=== PATIENT | female | born 1985 | race American Indian/Alaskan Native ===

== ENCOUNTER 2021-05-03 15:27 | Emergency (ER) | payer MEDICAID ==
[2021-05-03 16:10] VITALS: BP 99/65
--- NOTE | 2021-05-03 17:00 | Emergency Department Report ---
ED Female HPI - General Chief complaint: Urogenital-Female Stated complaint: STI EXPOSURE Time Seen by Provider: 05/03/21 16:55 Source: patient Mode of arrival: Ambulatory Limitations: No Limitations - History of Present Illness Initial comments: 35-year-old -[place] female reports to the emergency room stating that her partner told her she needed to get checked for STI. Patient also reports dysuria urinary urgency and frequency for the last 3 days. She does report some vaginal discharge and thought it was may be a yeast infection. Patient is 1 para 1. Patient reports her last menstrual period was 04/17/2021. She currently has no past medical history takes no medications on a daily basis and has no known drug allergies. MD Complaint: possible STD Onset/Timin -: days(s) Severity: mild Severity scale (0 -10): 0 Worsens with: urination Are you Now?: No Associated Symptoms: vaginal discharge, dysuria. denies: vaginal bleeding, abdominal pain, nausea/vomiting, fever/chills, hematuria, rash, shortness of breath, weakness - Related Data Previous Rx's Medication Instructions Recorded Last Taken Type Doxycycline Hyclate [Doxycycline 100 mg PO Q12HR 10 Days #20 tab 05/03/21 Unknown Rx Hyclate TAB] metroNIDAZOLE [Flagyl] 500 mg PO Q12HR 7 Days #14 tab 05/03/21 Unknown Rx Allergies Allergy/AdvReac Type Severity Reaction Status Date / Time No Known Allergies Allergy Unverified 05/03/21 16:05 ED Review of Systems ROS: Stated complaint: STI EXPOSURE Other details as noted in HPI Comment: All other systems reviewed and negative ED Past Medical Hx - Past Medical History Previous Medical History?: No - Surgical History Additional Surgical History: THROAT - Medications Home Medications: Home Medications Medication Instructions Recorded Confirmed Last Taken Type Doxycycline Hyclate [Doxycycline 100 mg PO Q12HR 10 Days #20 tab 05/03/21 Unknown Rx Hyclate TAB] metroNIDAZOLE [Flagyl] 500 mg PO Q12HR 7 Days #14 tab 05/03/21 Unknown Rx ED Physical Exam - General Limitations: No Limitations General appearance: alert, in no apparent distress - Head Head exam: Present: atraumatic, normocephalic - Eye Eye exam: Present: normal appearance - ENT ENT exam: Present: mucous membranes moist, normal external ear exam - Neck Neck exam: Present: full ROM - Respiratory Respiratory exam: Absent: accessory muscle use - Cardiovascular Cardiovascular Exam: Present: regular rate - GI/Abdominal GI/Abdominal exam: Present: soft. Absent: distended, tenderness - Extremities Exam Extremities exam: Present: normal inspection, full ROM - Back Exam Back exam: Present: full ROM - Neurological Exam Neurological exam: Present: alert, oriented X3, normal gait - Psychiatric Psychiatric exam: Present: normal affect, normal mood - Skin Skin exam: Present: warm, dry, intact, normal color. Absent: rash ED Course Vital Signs 05/03/21 16:08 Temperature 98.2 F Pulse Rate 60 Respiratory 18 Rate Blood Pressure 99/65 [Right] O2 Sat by Pulse 100 Oximetry ED Medical Decision Making - Medical Decision Making 35-year-old -[place] female reports to the emergency room stating that her partner told her she needed to get checked for STI. Patient also reports dysuria urinary urgency and frequency for the last 3 days. She does report some vaginal discharge and thought it was may be a yeast infection. Patient is 1 para 1. Patient reports her last menstrual period was 04/17/2021. She currently has no past medical history takes no medications on a daily basis and has no known drug allergies. Urinalysis and urine test sent to lab. Rocephin 500 mg IM for possible gonorrhea. Critical care attestation.: If time is entered above; I have spent that time in minutes in the direct care of this critically ill patient, excluding procedure time. ED Disposition Clinical Impression: STI (sexually transmitted infection) Disposition: DC-01 TO HOME OR SELFCARE Is pt being admited?: No Does the pt Need Aspirin: No Condition: Stable Instructions: Safe Sex, Preventing Sexually Transmitted Infections, Adult Additional Instructions: Please antibiotics as prescribed. Please inform partner that you have been treated. Refrain from intercourse for 2 weeks. Is very important for you to follow-up at the [facility] for a full STD evaluation including HIV herpes hepatitis syphilis gonorrhea chlamydia. Prescriptions: Doxycycline Hyclate [Doxycycline Hyclate TAB] 100 mg PO Q12HR 10 Days #20 tab metroNIDAZOLE [Flagyl] 500 mg PO Q12HR 7 Days #14 tab Referrals: [facility] [Outside] - 3-5 Days Forms: Work/School Release Form(ED)
[2021-05-03 17:15] LABS: Bacteria,Urine 1+ /HPF (Negative); Bilirubin,Urine NEG (Negative); Blood,Urine NEG (Negative); Color,Urine Yellow (Yellow); Mucus,Urine 2+ /HPF; Protein,Urine <15 mg/dL mg/dL (Negative); Urobilinogen,Urine < 2.0 mg/dL (<2.0)
[2021-05-03] MEDS ORDERED: LIDOCAINE-MPF (1%) 10 MG/1 ML VIAL 5 ML INFILTRATI ONE (17:25)
[2021-05-03 17:29] LABS: HCG Qualitative,Urine Negative (Negative)
== END 2021-05-03 17:53 | disposition home or self-care (01) ==
LOC: ED 15:27
DX: A64 Unspecified sexually transmitted disease (principal); Z98.890 Other specified postprocedural states; Z79.899 Other long term (current) drug therapy
CPT/HCPCS: 81001; 81025; 96372; 99283; J0696

== ENCOUNTER 2021-06-02 21:45 | Emergency (ER) | payer MEDICAID ==
[2021-06-02 23:34] VITALS: BP 103/59
[2021-06-02] MEDS ORDERED: LIDOCAINE-MPF (1%) 10 MG/1 ML VIAL 5 ML INFILTRATI ONE (23:35)
--- NOTE | 2021-06-02 23:42 | Emergency Department Report ---
ED Female HPI - General Chief complaint: Urogenital-Female Stated complaint: VAGINAL DISCHARGE Source: patient Mode of arrival: Ambulatory Limitations: No Limitations - History of Present Illness Initial comments: Patient is a A0 35-year-old -[place] female with no past medical history presents to the ED with complaint of acute onset persistent vaginal discharge that she describes as yellowish-green with malodorous smell for the last 1 week. Patient states that her sexual partner informed that he was treated for gonorrhea and chlamydia recently and that she needs to come to the ED for evaluation. Patient states that when she noticed the vaginal discharge they come to the ED for evaluation. Patient states that she is currently on her menstrual cycle which started about 8 hours ago. Patient denies abdominal pain, nausea and vomiting, dysuria, urinary frequency and urgency, chest pain or shortness of breath, headache, dizziness, fever and chills. MD Complaint: vaginal discharge, possible STD (Possible exposure to STD) -: Sudden, week(s) (1) Location: other (Vaginal) Radiation: non-radiating Severity: moderate Severity scale (0 -10): 0 Consistency: constant Improves with: none Worsens with: none Are you Now?: No (Currently on her menstrual cycle) Associated Symptoms: denies other symptoms, vaginal discharge. denies: vaginal bleeding, abdominal pain, nausea/vomiting, fever/chills, headaches, loss of appetite, hematuria, rash, shortness of breath, syncope, weakness, other - Related Data Sexually active: Yes : 1 Para: 1 A: 0 Previous Rx's Medication Instructions Recorded Last Taken Type Doxycycline Hyclate [Doxycycline 100 mg PO Q12HR 10 Days #28 tab 06/02/21 Unknown Rx Hyclate TAB] Fluconazole [Diflucan TAB] 200 mg PO QDAY #2 tablet 06/02/21 Unknown Rx metroNIDAZOLE [Flagyl TAB] 500 mg PO Q12HR 7 Days #14 tab 06/02/21 Unknown Rx Allergies Allergy/AdvReac Type Severity Reaction Status Date / Time No Known Allergies Allergy Unverified 05/03/21 16:05 ED Review of Systems ROS: Stated complaint: VAGINAL DISCHARGE Other details as noted in HPI Constitutional: denies: chills, fever Eyes: denies: eye pain, eye discharge, vision change ENT: denies: ear pain, throat pain Respiratory: denies: cough, shortness of breath, wheezing Cardiovascular: denies: chest pain, palpitations Endocrine: no symptoms reported Gastrointestinal: denies: abdominal pain, nausea, diarrhea Genitourinary: discharge (Thick yellowish-green malodorous vaginal discharge). denies: urgency, dysuria, frequency, hematuria, abnormal menses, dyspareunia Musculoskeletal: denies: back pain, joint swelling, arthralgia Skin: denies: rash, lesions Neurological: denies: headache, weakness, paresthesias Psychiatric: denies: anxiety, depression Hematological/Lymphatic: denies: easy bleeding, easy bruising ED Past Medical Hx - Past Medical History Previous Medical History?: No - Surgical History Additional Surgical History: THROAT - Social History Smoking Status: Current Every Day Smoker Substance Use Type: None - Medications Home Medications: Home Medications Medication Instructions Recorded Confirmed Last Taken Type Doxycycline Hyclate [Doxycycline 100 mg PO Q12HR 10 Days #28 tab 06/02/21 Unknown Rx Hyclate TAB] Fluconazole [Diflucan TAB] 200 mg PO QDAY #2 tablet 06/02/21 Unknown Rx metroNIDAZOLE [Flagyl TAB] 500 mg PO Q12HR 7 Days #14 tab 06/02/21 Unknown Rx ED Physical Exam - General Limitations: No Limitations General appearance: alert, in no apparent distress - Head Head exam: Present: atraumatic, normocephalic, normal inspection - Eye Eye exam: Present: normal appearance, PERRL, EOMI Pupils: Present: normal accommodation - ENT ENT exam: Present: normal exam, normal orophraynx, mucous membranes moist, TM's normal bilaterally, normal external ear exam - Neck Neck exam: Present: normal inspection - Respiratory Respiratory exam: Present: normal lung sounds bilaterally. Absent: respiratory distress, wheezes, rhonchi, chest wall tenderness, accessory muscle use, decreased breath sounds - Cardiovascular Cardiovascular Exam: Present: regular rate, normal rhythm, normal heart sounds. Absent: systolic murmur, diastolic murmur, rubs, gallop - GI/Abdominal GI/Abdominal exam: Present: soft, normal bowel sounds. Absent: tenderness, guarding, rebound, hyperactive bowel sounds, hypoactive bowel sounds, organomegaly - Bi-manual exam: Present: other (Pelvic exam deferred at this time) - Extremities Exam Extremities exam: Present: normal inspection, full ROM, normal capillary refill - Back Exam Back exam: Present: normal inspection, full ROM. Absent: tenderness, CVA tenderness (R), CVA tenderness (L), muscle spasm, paraspinal tenderness, vertebral tenderness - Neurological Exam Neurological exam: Present: alert, oriented X3, CN II-XII intact, normal gait, reflexes normal - Psychiatric Psychiatric exam: Present: normal affect, normal mood - Skin Skin exam: Present: warm, dry, intact, normal color. Absent: rash ED Course Vital Signs 06/02/21 23:26 Temperature 98.5 F Pulse Rate 62 Respiratory 18 Rate Blood Pressure 103/59 O2 Sat by Pulse 99 Oximetry ED Medical Decision Making - Medical Decision Making This is a A0 35-year-old -[place] female with no past medical history presents to the ED with complaint of acute onset persistent vaginal discharge that she describes as yellowish-green with malodorous smell for the last 1 week. Patient states that her sexual partner informed that he was treated for gonorrhea and chlamydia recently and that she needs to come to the ED for evaluation. Patient states that when she noticed the vaginal discharge they come to the ED for evaluation. Patient states that she is currently on her menstrual cycle which started about 8 hours ago. In the ED, patient is alert and oriented x3 and is not in any distress. Patient was empirically treated for gonorrhea and chlamydia given her exposure and also discharged home on antibiotics, doxycycline and Flagyl. Patient was advised to follow-up with the [facility] department for further evaluation including HIV and syphilis tests. Patient was advised to observe safe sexual practices to minimize exposure to STD. Patient is advised return to the ED immediately if symptoms get worse. - Differential Diagnosis Bacterial vaginosis; gonorrhea; chlamydia; trichomonas; Critical care attestation.: If time is entered above; I have spent that time in minutes in the direct care of this critically ill patient, excluding procedure time. ED Disposition Clinical Impression: Bacterial vaginosis, Possible exposure to STD, Cervicitis, acute, non-specific Disposition: - TO HOME OR SELFCARE Is pt being admited?: No Does the pt Need Aspirin: No Condition: Stable Instructions: Bacterial Vaginosis (ED), Cervicitis (ED), Bacterial Vaginosis, [id number], Cervicitis, [id number], Trichomoniasis, Gonorrhea Additional Instructions: Take medication with food, drink plenty of fluids and follow-up with your primary care physician or [facility] department for further STD testing including HIV and syphilis. Return to the ED immediately if symptoms get worse. Prescriptions: Fluconazole [Diflucan TAB] 200 mg PO QDAY #2 tablet Doxycycline Hyclate [Doxycycline Hyclate TAB] 100 mg PO Q12HR 10 Days #28 tab metroNIDAZOLE [Flagyl TAB] 500 mg PO Q12HR 7 Days #14 tab Referrals: [facility] [Provider Group] - 7-10 days Forms: STI Treatment and Prevention Time of Disposition: 23:42 Print Language: SWEDISH
== END 2021-06-03 00:08 | disposition home or self-care (01) ==
LOC: ED 21:45
DX: N72 Inflammatory disease of cervix uteri (principal); N76.0 Acute vaginitis; B96.89 Other specified bacterial agents as the cause of diseases classified elsewhere; F17.200 Nicotine dependence, unspecified, uncomplicated; Z20.2 Contact with and (suspected) exposure to infections with a predominantly sexual mode of transmission; Z79.899 Other long term (current) drug therapy; Z98.890 Other specified postprocedural states
CPT/HCPCS: 96372; 99281; J0696